=== PATIENT | male | born 1970 | race Caucasian/White ===

== ENCOUNTER 2025-01-07 08:18 | Day surgery (SDC) | payer MEDICAID ==
[~2025-01-07 08:18] MED LIST: Bupivacaine 0.5% 30 ML SDV ONE; Bupivacaine 0.5% 50 ML MDV ONE; Midazolam 1 MG/ML 2 ML SDV ONE; Propofol 200 MG/20 ML SDV ONE; fentaNYL 100 MCG/2 ML SDV ONE
[2025-01-07] MEDS: Lactated Ringers 1,000 ML IV SCH (08:30)
[2025-01-07] MEDS: Nozin Nasal Sanitizer NASBOTH ONE (08:30)
[2025-01-07] MEDS ORDERED: Bupivacaine 0.5% 30 ML SDV ONE (08:34)
[2025-01-07 08:41] LABS: HEMATOCRIT 40.9 % (38.4-49.7); MEAN CORPUSCULAR HEMOGLOBIN 29.6 pg (31.6-35.5); MEAN CORPUSCULAR HGB CONC 34.2 g/dL (31.6-35.5); MEAN CORPUSCULAR VOLUME 86.5 fL (81.4-99.0); RED BLOOD CELL COUNT 4.73 M/uL (4.14-5.76); WHITE BLOOD CELL COUNT,WBC 5.4 K/uL (3.2-11.0)
[2025-01-07 08:55] LABS: CALCIUM 8.7 mg/dL (8.5-10.1); CREATININE 0.8 mg/dL (0.8-1.3); EST CRCL DRUG DOSING (CG) 111.53 mL/min; POTASSIUM,K 4.1 mmol/L (3.6-5.2)
[2025-01-07 08:57] LABS: ANION GAP 11.1 mmol/L (5.0-14.0)
[2025-01-07] MEDS ORDERED: ceFAZolin 2 GM in Sodium Chloride 0.9% 50 ML IV ONE (09:30)
[2025-01-07] MEDS ORDERED: Dexamethasone 4 MG/ML SDV ONE (09:32)
[2025-01-07] MEDS ORDERED: Rocuronium 50 MG/5 ML Vial ONE (09:32)
[2025-01-07] MEDS ORDERED: Succinylcholine 200 MG/10 ML MDV ONE (09:32)
[2025-01-07] MEDS ORDERED: Ondansetron 4 MG/2 ML SDV ONE (09:32)
[2025-01-07] MEDS: ceFAZolin 2 GM in Premix Bag 1 BAG IV ONE (09:45)
[2025-01-07] MEDS ORDERED: fentaNYL 100 MCG/2 ML SDV ONE (10:06)
[2025-01-07] MEDS: Acetaminophen/oxyCODONE 325-5 MG Tab PO ONE (12:24)
== END 2025-01-07 13:15 | disposition home or self-care (01) ==
LOC: JP.SDS 08:18
PROVIDERS: ATTEND Specialist
DX: M75.101 Unspecified rotator cuff tear or rupture of right shoulder, not specified as traumatic (principal); M94.211 Chondromalacia, right shoulder; M75.41 Impingement syndrome of right shoulder; I10 Essential (primary) hypertension; E11.9 Type 2 diabetes mellitus without complications; K21.9 Gastro-esophageal reflux disease without esophagitis; F17.200 Nicotine dependence, unspecified, uncomplicated; Z88.8 Allergy status to other drugs, medicaments and biological substances
CPT/HCPCS: 29826; 29827; 36415; 80048; 85027; A9270; C1713; J0330; J0665; J0690; J1100; J2250; J2405; J2704; J3010; J7120; 01630-QZ; J3490